=== PATIENT | male | born 1955 | race Two or more races ===

== ENCOUNTER 2020-03-25 13:51 | Inpatient (IN) | payer OTHER ==
[~2020-03-25] VITALS: Ht 175.3 cm; Wt 77.1 kg
[2020-03-25] MEDS ORDERED: SODIUM CHLORIDE 0.9% 500 ML IVB ONE (14:05)
[2020-03-25] MEDS ORDERED: ONDANSETRON HCL 4 MG/2 ML VIAL IV ONE (14:15)
[2020-03-25] MEDS ORDERED: MORPHINE SULFATE 4 MG/ML SYR/VIAL IV ONE (14:15)
[2020-03-25 14:23] LABS: Basophils # (auto) 0 10 ^3/uL (0-0.2); Basophils % (auto) 0.3 % (0.0-2.0); Eosinophils # (auto) 0 10 ^3/uL (0-0.8); Eosinophils % (auto) 0.1 % (0.0-7.0); Hematocrit 44.1 % (41.0-53.0); Hemoglobin 15.1 g/dL (13.5-17.5); Lymphocytes # (auto) 0.7 10 ^3/uL (0.4-5.4); Lymphocytes % (auto) 11.3 % (10.0-50.0); Mean Corpuscular Hgb Conc. 34.4 g/dL (32.0-36.0); Mean Corpuscular Volume 87.2 fL (80.0-100.0); Monocytes # (auto) 0.4 10 ^3/uL (0-1.3); Monocytes % (auto) 6.8 % (0.0-12.0); Neutrophils % (auto) 81.5 % (37.0-80.0); Nucleated Red Blood Cells % 0.2 %; Platelet Count (auto) 181 10^3/uL (140-450); Red Blood Cells 5.05 10^6/uL (4.5-5.90); Red Cell Distribution Width 12.6 % (11.8-14.3); White Blood Cell 6.1 10^3/uL (4.4-10.8)
[2020-03-25 14:38] LABS: INR 1.14 (0.9-1.15); Partial Thromboplastin Time 38.4 sec (23.64-32.05)
[2020-03-25 14:41] LABS: Albumin 3.2 g/dL (3.4-5.0); Amylase 57 U/L (25-115); Anion Gap 6 (5-15); Blood Urea Nitrogen 14 mg/dL (7-18); Carbon Dioxide 27 mmol/L (21-32); Chloride 100 mmol/L (98-107); Glucose 109 mg/dL (74-106); Lipase 123 U/L (73-393); Potassium 3.8 mmol/L (3.5-5.1); Sodium 133 mmol/L (136-145)
[2020-03-25 14:48] LABS: Alanine Aminotransferase 73 U/L (16-61); Alkaline Phosphatase 80 U/L (45-117); Aspartate Aminotransferase 58 U/L (15-37); BUN/Creatinine Ratio 12.6; Bilirubin, Total 0.9 mg/dL (0.2-1.0); GFR African American 86 mL/min; GFR Non-African American 71 mL/min; Total Protein 7.9 g/dL (6.4-8.2)
[2020-03-25] MEDS ORDERED: IOHEXOL 300 MG/ML 100ML BOTTLE IJ ONE (17:13)
[2020-03-25] MEDS ORDERED: LORazepam 0.5 MG TAB PO PRN (17:15)
[2020-03-25] MEDS ORDERED: ALUM & MAG HYDROX-SIMETH LIQ(MAALOX) 30 ML PO PRN (17:15)
[2020-03-25] MEDS ORDERED: ONDANSETRON HCL 4 MG/2 ML VIAL IV PRN (17:15)
[2020-03-25] MEDS ORDERED: DOCUSATE SOD 100 MG CAP PO PRN (17:15)
[2020-03-25] MEDS ORDERED: NITROGLYCERIN 0.4 MG SL TAB SL PRN (17:15)
[2020-03-25] MEDS ORDERED: ACETAMINOPHEN 500 MG TAB PO PRN (17:15)
[2020-03-25] MEDS ORDERED: MORPHINE SULF INJ 2 MG/ML SYRINGE 1ML IV PRN ×2 (17:15)
[2020-03-25] MEDS ORDERED: HYDROcodone-ACET 5/325MG TAB PO PRN (17:15)
[2020-03-25] MEDS: SOD CHL 0.45% 1,000 ML IV SCH (17:58)
[2020-03-25 18:01] VITALS: BP 112/72
[2020-03-25 18:57] LABS: Urine WBC None Seen /hpf (0 - 3)
[2020-03-25 19:17] LABS: Cholesterol 146 mg/dL (< 200); HDL Cholesterol 43 mg/dL (40-59); LDL Cholesterol 93 mg/dL (< 100); Triglycerides 98 mg/dL (< 150)
[2020-03-25 19:17] LABS: Urine Bacteria NONE SEEN /hpf (None Seen); Urine Blood Negative /uL (Negative); Urine Specific Gravity 1.006 (1.001-1.035)
[2020-03-25 19:20] LABS: Magnesium 2.2 mg/dL (1.6-2.6)
[2020-03-25 19:21] LABS: CRP High Sensitivity 12.9 mg/dL (< 0.3)
[2020-03-25 19:22] LABS: Amphetamine Screen, Urine NEGATIVE (NEGATIVE); Barbiturate Scree,Urine NEGATIVE (NEGATIVE); Benzodiazephine Screen, Urine NEGATIVE (NEGATIVE); Cannabinoid Screen, Urine NEGATIVE (NEGATIVE); Cocaine Screen, Urine NEGATIVE (NEGATIVE); Opiate Scree,Urine NEGATIVE (NEGATIVE); Phencyclidine Screen, Urine NEGATIVE (NEGATIVE)
[2020-03-25 19:24] LABS: Alcohol, Urine < 3.0 mg/dL (0-10)
[2020-03-25] MEDS ORDERED: ALBUTEROL SULF HFA 90MCG INH 200DOSE IN SCH (22:00)
--- NOTE | 2020-03-25 22:55 | NUR ---
Telemetry admit from [facility] admitted to Telemetry unit after SBAR received. Patient oriented to ANTONI GREER RN primary RN, unit, room, bed, and unit policies regarding patient care and visiting hours. Patient now on continuous telemetry monitoring, tele box # 21 and telemetry reading on arrival to unit is SR. Patient placed on bedside oxygen, weighed by bedscale and encouraged to call if they need something. All questions and concerns addressed, patient verbalized understanding.
[2020-03-25] MEDS ORDERED: FUROSEMIDE 20 MG/2 ML VIAL IV ONE (23:45)
[2020-03-26] MEDS: DOXYCYCLINE 100 MG TAB/CAP PO SCH ×3 (00:18→22:43)
--- NOTE | 2020-03-26 03:08 | NUR ---
CARE ENDORSED TO SUSANNE SOLITARIO
--- NOTE | 2020-03-26 03:30 | NUR ---
Received pt's report from battery inspector nurse, pt sleeping resting comfortably, call light within reach, will continue to monitor pt.
[2020-03-26 05:00] VITALS: BP 174/74
[2020-03-26] MEDS: FUROSEMIDE 20 MG/2 ML VIAL IV SCH ×2 (06:33→17:33)
--- NOTE | 2020-03-26 06:53 | NUR ---
Pt educated on the use, need, and frequency of the incentive spirometer, pt verbalized understanding, obtain returned demonstration up to 500. Pt also encourage to position himself on a prone position as tolerated.
[2020-03-26 07:13] LABS: Basophils # (auto) 0 10 ^3/uL (0-0.2); Basophils % (auto) 0.2 % (0.0-2.0); Eosinophils # (auto) 0 10 ^3/uL (0-0.8); Eosinophils % (auto) 0.2 % (0.0-7.0); Hematocrit 40.5 % (41.0-53.0); Hemoglobin 14.1 g/dL (13.5-17.5); Lymphocytes % (auto) 12.7 % (10.0-50.0); Mean Corpuscular Hgb Conc. 34.8 g/dL (32.0-36.0); Mean Corpuscular Volume 86.4 fL (80.0-100.0); Monocytes # (auto) 0.4 10 ^3/uL (0-1.3); Monocytes % (auto) 5.2 % (0.0-12.0); Neutrophils # (auto) 6.2 10 ^3/uL (1.6-8.6); Neutrophils % (auto) 81.7 % (37.0-80.0); Nucleated Red Blood Cells % 0.1 %; Platelet Count (auto) 171 10^3/uL (140-450); Red Blood Cells 4.69 10^6/uL (4.5-5.90); Red Cell Distribution Width 12.3 % (11.8-14.3); White Blood Cell 7.6 10^3/uL (4.4-10.8)
--- NOTE | 2020-03-26 07:25 | NUR ---
ASSESSED PT FOR THE NEED OF MDI TX, PT SAYS SHE DOES NOT TAKE BREATHING TX AT HOME, PT ON 2 L NC WITH SPO2 93%, HR 72, RR 18 WITH DIMINISHED BS NO SOB NOTED, NO DISTRESS NOTED. MDI DC. WILL CONTINUE TO MONITOR PT. Addendum: 03/26/20 at 1429 by DARWIN SEALS, RT RT MICHAEL
[2020-03-26 07:33] LABS: INR 1.15 (0.9-1.15); Partial Thromboplastin Time 38.8 sec (23.64-32.05)
[2020-03-26 07:46] LABS: Chloride 102 mmol/L (98-107); Potassium 3.9 mmol/L (3.5-5.1); Sodium 132 mmol/L (136-145)
[2020-03-26 08:00] VITALS: BP 124/74
[2020-03-26 08:02] LABS: Alanine Aminotransferase 66 U/L (16-61); Albumin 2.6 g/dL (3.4-5.0); Alkaline Phosphatase 71 U/L (45-117); Anion Gap 5 (5-15); Aspartate Aminotransferase 44 U/L (15-37); Bilirubin, Total 0.8 mg/dL (0.2-1.0); Blood Urea Nitrogen 13 mg/dL (7-18); Calcium 7.7 mg/dL (8.5-10.1); Carbon Dioxide 25 mmol/L (21-32); Creatine Kinase IFCC 86 U/L (39-308); GFR African American 167 mL/min; GFR Non-African American 138 mL/min; Glucose 110 mg/dL (74-106); Lactate Dehydrogenase 302 U/L (87-241); Magnesium 2.4 mg/dL (1.6-2.6); Phosphorus 3.2 mg/dL (2.5-4.90); Total Protein 6.9 g/dL (6.4-8.2)
[2020-03-26 10:00] VITALS: BP 124/74
[2020-03-26] MEDS ORDERED: ENOXAPARIN SOD 40 MG/0.4 ML SYRINGE SC SCH (10:00)
[2020-03-26] MEDS: ZINC SULFATE 220mg CAP or TAB PO SCH (10:29)
[2020-03-26] MEDS: SOD CHL 0.45% 1,000 ML IV SCH (10:29)
[2020-03-26] MEDS: ASCORBIC ACID 1,000 MG TAB PO SCH (10:30)
[2020-03-26] MEDS: CHOLECALCIFEROL (VITD3) 1,000UNIT=25mCg TAB PO SCH (10:30)
[2020-03-26] MEDS ORDERED: POLYETHYLENE GLYCOL 17 GM PWDR PO ONE (11:45)
[2020-03-26 12:00] VITALS: BP 123/75
[2020-03-26] MEDS ORDERED: ENOXAPARIN SOD 40 MG/0.4 ML SYRINGE SC ONE (12:30)
--- NOTE | 2020-03-26 13:48 | NUR ---
Dr. Guido/heather at bed side to see pt, doctor discussed the plan of care with pt.
--- NOTE | 2020-03-26 14:23 | NUR ---
Called and left a message to Dr. Audie lCark informing him that the CT angio can not be done today due to pt having contrast yesterday, CT angio can be done tomorrow, but doctor informed that if it needs to be done stat there has to be a documentation order.
[2020-03-26 17:00] VITALS: BP_SYST 119; BP_SYST 120; BP_DIAS 63; BP_DIAS 73
--- NOTE | 2020-03-26 20:00 | NUR ---
open note assumed care of pt. upon entering room pt awake, alert and oriented x4. pt on 2L nc no distress noted or expressed. pt denied any pain. pt updated on plan of care, no additional questions at this time. pt bed locked, low and 2x rails up. pt on respiratory iso for positive covid. pt call light in reach. pt encouraged to call as needed. this nurse to check in with pt q1hr and prn.
[2020-03-26 21:04] VITALS: BP 109/66
[2020-03-26] MEDS: ENOXAPARIN SOD 80 MG/0.8ML SYRINGE SC SCH (22:43)
[2020-03-27] MEDS: SOD CHL 0.45% 1,000 ML IV SCH ×2 (03:16→19:13)
[2020-03-27] MEDS: FUROSEMIDE 20 MG/2 ML VIAL IV SCH ×2 (06:00→18:35)
--- NOTE | 2020-03-27 07:55 | NUR ---
REGARDING CT ANGIO: CALLED RADIOLOGY REGARDING PATIENTS PENDING CT ANGIO WITH CONTRAST. STATED HAVE TO WAIT UNTIL 4PM DUE TO CONTRAST.
--- NOTE | 2020-03-27 08:30 | NUR ---
OPENING SHIFT NOTE: PATIENT RESTING IN BED NO S/S OF DISTRESS NOTED AT THIS TIME. PATIENT DENIES ANY PAIN AT THIS TIME. THIS RN OBSERVED PROPER RETURN DEMONSTRATION OF INCENTIVE SPIROMETER. 750ML. INSTRUCTED PATIENT ON IMPORTANCE OF AMBULATING AND SELF PRONING, VERBALIZED UNDERSTANDING. ASSISTED PATIENT TO SIT IN CHAIR TO EAT BREAKFAST. TOLERATED WELL. NO S/S OF SOB NOTED AT THIS TIME. WILL CONTINUE CARE.
[2020-03-27 09:00] VITALS: BP 101/66
--- NOTE | 2020-03-27 09:39 | NUR ---
REGARDING TOCILIZUMAB: PER PHARMACIST, ONLY Stuart BRUMFIELD AND Stuart ALCAZAR CAN SIGN OFF ON THIS MEDICATION. CALLED Stuart ALCAZAR TO INFORM STATED HE WILL CALL Stuart BARRERA.
[2020-03-27] MEDS: methylPREDNISolone SOD SUCC 40 MG/ML VL IV SCH ×3 (10:00→22:00)
[2020-03-27] MEDS ORDERED: TOCILIZUMAB 400 MG IV SCH (10:00)
[2020-03-27] MEDS: ZINC SULFATE 220mg CAP or TAB PO SCH (10:26)
[2020-03-27] MEDS: DOXYCYCLINE 100 MG TAB/CAP PO SCH ×2 (10:27→23:30)
[2020-03-27] MEDS: CHOLECALCIFEROL (VITD3) 1,000UNIT=25mCg TAB PO SCH (10:27)
[2020-03-27] MEDS: ASCORBIC ACID 1,000 MG TAB PO SCH (10:27)
[2020-03-27] MEDS: ENOXAPARIN SOD 80 MG/0.8ML SYRINGE SC SCH ×2 (10:28→23:30)
--- NOTE | 2020-03-27 11:00 | NUR ---
REGARDING TOCILIZUMAB: PER PHARMACIST MED CAN NOT BE MIXED UNTIL 1900 DUE TO PHARMACY HOURS. INFORMED Stuart BARRERA. STATED OK.
[2020-03-27] MEDS ORDERED: methylPREDNISolone SOD SUCC 40 MG/ML VL IV ONE ×2 (11:30→18:00)
[2020-03-27] MEDS ORDERED: diphenhdrAMINE HCL 50 MG/1 ML VL IV ONE ×2 (11:30→18:00)
[2020-03-27] MEDS ORDERED: ACETAMINOPHEN 650 mg PER 20 mL UD PO ONE ×2 (11:30→18:00)
[2020-03-27] MEDS ORDERED: TOCILIZUMAB 400 MG in SODIUM CHL 0.9% 80 ML IV SCH (12:00)
[2020-03-27 12:42] VITALS: BP 103/71
--- NOTE | 2020-03-27 15:02 | NUR ---
IV INITIATED TO LFA 18 GAUGE WITH 1 ATTEMPT FOLLOWING HOSPITAL POLICY.
[2020-03-27] MEDS ORDERED: IOHEXOL 350 MG/ML 100ML IJ ONE (17:20)
--- NOTE | 2020-03-27 17:29 | NUR ---
PATIENT WHEELED DOWN TO RADIOLOGY FOR CT. NO S/S OF DISTRESS. TRANSPORTED BY RADIOLOGY STAFF ON TELE MONITORING.
[2020-03-27 17:34] VITALS: BP 107/64
[2020-03-27 18:30] LABS: Alcohol, Urine < 3.0 mg/dL (0-10); Amphetamine Screen, Urine NEGATIVE (NEGATIVE); Barbiturate Scree,Urine NEGATIVE (NEGATIVE); Benzodiazephine Screen, Urine NEGATIVE (NEGATIVE); Cannabinoid Screen, Urine NEGATIVE (NEGATIVE); Cocaine Screen, Urine NEGATIVE (NEGATIVE); Opiate Scree,Urine NEGATIVE (NEGATIVE); Phencyclidine Screen, Urine NEGATIVE (NEGATIVE)
--- NOTE | 2020-03-27 19:00 | NUR ---
CALLED PHARMACY REGARDING ACTREMA. STATED THEY HAVE ALREADY SENT IT UP WITH PHARMACY.
--- NOTE | 2020-03-27 19:21 | NUR ---
Opening Shift Note Assumed care of patient, awake, alert and oriented x4, on 2L of oxygen via NC with even and unlabored respirations, no S/S of distress/SOB or pain. Patient able to ambulate independently, bed in lowest locked position, side rails up x2, and call light within reach. Instructed on POC and to call for assist PRN, will continue to monitor for changes Q1hr and PRN.
[2020-03-27] MEDS: TOCILIZUMAB 400 MG in SODIUM CHL 0.9% 80 ML IV SCH (19:36)
[2020-03-27 22:00] VITALS: BP 108/70
[2020-03-28 05:00] VITALS: BP 110/77
[2020-03-28] MEDS: FUROSEMIDE 20 MG/2 ML VIAL IV SCH ×2 (05:46→18:06)
[2020-03-28] MEDS: TOCILIZUMAB 400 MG in SODIUM CHL 0.9% 80 ML IV SCH (06:45)
[2020-03-28 06:58] LABS: Potassium 4.1 mmol/L (3.5-5.1)
[2020-03-28 07:16] LABS: BUN/Creatinine Ratio 31.7; CRP High Sensitivity 11.5 mg/dL (< 0.3); Calcium 8.2 mg/dL (8.5-10.1)
--- NOTE | 2020-03-28 07:30 | NUR ---
Opening Shift Note Assumed care of patient, awake and alert. No S/S of distress/SOB or pain. Instructed on POC and to call for assist PRN, will continue to monitor for changes Q1hr and PRN. Fall precautions in place per safety protocol.
[2020-03-28 08:00] VITALS: BP 108/71
[2020-03-28] MEDS: CHOLECALCIFEROL (VITD3) 1,000UNIT=25mCg TAB PO SCH (10:54)
[2020-03-28] MEDS: ZINC SULFATE 220mg CAP or TAB PO SCH (10:54)
[2020-03-28] MEDS: ENOXAPARIN SOD 80 MG/0.8ML SYRINGE SC SCH ×2 (10:54→22:10)
[2020-03-28] MEDS: ASCORBIC ACID 1,000 MG TAB PO SCH (10:54)
[2020-03-28] MEDS: methylPREDNISolone SOD SUCC 40 MG/ML VL IV SCH ×2 (10:54→22:09)
[2020-03-28] MEDS: DOXYCYCLINE 100 MG TAB/CAP PO SCH ×2 (11:20→22:10)
[2020-03-28] MEDS: SOD CHL 0.45% 1,000 ML IV SCH (11:44)
[2020-03-28 13:00] VITALS: BP 109/70
[2020-03-28 22:00] VITALS: BP 112/72
[2020-03-29] MEDS: SOD CHL 0.45% 1,000 ML IV SCH (04:24)
[2020-03-29 05:00] VITALS: BP 95/65
[2020-03-29] MEDS: FUROSEMIDE 20 MG/2 ML VIAL IV SCH (06:01)
[2020-03-29 07:32] LABS: Basophils # (auto) 0 10 ^3/uL (0-0.2); Basophils % (auto) 0.1 % (0.0-2.0); Eosinophils # (auto) 0 10 ^3/uL (0-0.8); Hematocrit 39.5 % (41.0-53.0); Hemoglobin 13.6 g/dL (13.5-17.5); Lymphocytes # (auto) 0.8 10 ^3/uL (0.4-5.4); Lymphocytes % (auto) 6.8 % (10.0-50.0); Mean Corpuscular Hemoglobin 29.6 pg (28.0-32.0); Mean Corpuscular Hgb Conc. 34.5 g/dL (32.0-36.0); Mean Corpuscular Volume 85.8 fL (80.0-100.0); Monocytes # (auto) 0.3 10 ^3/uL (0-1.3); Monocytes % (auto) 2.6 % (0.0-12.0); Neutrophils # (auto) 10.4 10 ^3/uL (1.6-8.6); Neutrophils % (auto) 90.5 % (37.0-80.0); Nucleated Red Blood Cells % 0.3 %; Platelet Count (auto) 281 10^3/uL (140-450); Red Blood Cells 4.61 10^6/uL (4.5-5.90); Red Cell Distribution Width 12.4 % (11.8-14.3); White Blood Cell 11.4 10^3/uL (4.4-10.8)
[2020-03-29 07:36] LABS: Calcium 8.4 mg/dL (8.5-10.1); Potassium 4.2 mmol/L (3.5-5.1)
[2020-03-29 07:45] LABS: BUN/Creatinine Ratio 30.6; CRP High Sensitivity 5.94 mg/dL (< 0.3)
[2020-03-29 08:00] VITALS: BP 111/74
--- NOTE | 2020-03-29 08:30 | NUR ---
EKG EKG obtained, QTC 431. Will cont to administer Plaquenil.
--- NOTE | 2020-03-29 09:24 | NUR ---
Assessment Patient is a 65-year-old male who is alert and oriented. Unable to speak to patient. Assessment was completed with patient homero Whatley . Per Phylicia prior to admission patient lived home with her and functioned independently. Per Phylicia patient does not have any medical equipment now. Per Phylicia patient will return home to his prior living arrangements post discharge and she will transport him home. Sonu Whatley patient does not have a PCP. Advised Phylicia there is a social service consult for safety evaluation for status of positive COVID. Informed Phylicia [facility] Informed Phylicia she has the right to participate in all discharge planning. Phylicia verbalized understanding and agreed to discharge plan. Faxed clinical information to [facility]. Sonu Tse with [facility] [phone] patient has been accepted and service to start within 48hrs upon d/c day. Informed patient homero Whatley. Addendum: 03/29/20 at 0926 by MARITZA QIU Amended: Links added.
[2020-03-29] MEDS: ZINC SULFATE 220mg CAP or TAB PO SCH (10:48)
[2020-03-29] MEDS: methylPREDNISolone SOD SUCC 40 MG/ML VL IV SCH (10:48)
[2020-03-29] MEDS: DOXYCYCLINE 100 MG TAB/CAP PO SCH (10:49)
[2020-03-29] MEDS: ENOXAPARIN SOD 80 MG/0.8ML SYRINGE SC SCH (10:49)
[2020-03-29] MEDS: ASCORBIC ACID 1,000 MG TAB PO SCH (10:49)
[2020-03-29] MEDS: CHOLECALCIFEROL (VITD3) 1,000UNIT=25mCg TAB PO SCH (10:49)
[2020-03-29 12:36] VITALS: BP 100/65
--- NOTE | 2020-03-29 13:08 | NUR ---
MD Marleny Elliott at bedside aware of patient status. Per MD Elliott, if Dr. Guido clears patient for D/C then patient can go home today after home o2 has been arranged by hospice social worker. Awaiting for MD Guido at this time. Will carry out new orders and cont to monitor patient.
[2020-03-29 13:30] VITALS: BP 100/65
--- NOTE | 2020-03-29 14:33 | NUR ---
1433 03/29/20 Faxed order for continuous home O2 2L/Min to [facility] at [phone] for case briefer Joycelyn Dasilva, requesting authorization.
--- NOTE | 2020-03-29 14:44 | NUR ---
Est energy needs 5236-8756 kcal (25-27 kcal/kg BW 77.1kg) Est protein needs 62-77g (0.8-1g/kg BW 77.1kg) Will reassess prn Addendum: 03/29/20 at [address] Amended: Links added.
[2020-03-29] MEDS ORDERED: IPRIH IN (15:15)
[2020-03-29] MEDS ORDERED: DOCU100C8 PO (15:15)
[2020-03-29] MEDS ORDERED: DOX100T PO (15:15)
[2020-03-29] MEDS ORDERED: HYDR200T36 PO (15:15)
[2020-03-29] MEDS ORDERED: PRED20TA2 PO (15:15)
[2020-03-29] MEDS ORDERED: ALBUAER3 IN (15:15)
--- NOTE | 2020-03-29 15:43 | NUR ---
I spoke with [facility] [employer]acht [employer] Erika and asked if they have a complex case management program. Per Erika they do have a special team that follows their COVID-19 + patients. I faxed home health order and COVID-19 test result to [facility].
--- NOTE | 2020-03-29 16:00 | NUR ---
Home O2 Delivered at bedside. Patient educated on use. Patient returned demonstration.
--- NOTE | 2020-03-29 16:36 | NUR ---
Spoke to Erika from [facility]'s Covid-19 monitoring program. Per Erika, services will be provided to patient after discharge. Address, phone number, and patient agreement and acceptance obtained and verified.
--- NOTE | 2020-03-29 16:43 | NUR ---
D/C Planning Per consult for home health safety evaluation for COVID and home O2. Home health order was completed on Saturday and [facility] has accepted. Patient will be refer to [facility]'s COVID monitoring program. Faxed clinical information to [facility]. Sonu Tse oxygen will be deliver to front lobby between 15:00-17:00.
[2020-03-29 16:44] VITALS: BP 115/72
--- NOTE | 2020-03-29 19:06 | NUR ---
Temporary Receptionist MD Guido at bedside, aware of patient status. Per MD Guido, patient is cleared for discharge. Prescription for Eliquis received. Will attempt to obtain an eliquis starter pack for patient. Will leave message for social worker aide to attempt obtaining starter pack in the AM. Advised patient's daughter, Phylicia to call in the AM or wait for call from our social worker aide.
[2020-03-29 19:36] VITALS: BP 115/72
--- NOTE | 2020-03-29 19:56 | NUR ---
Endorsed care to night RN Laurie. Patient is all set and ready to go just waiting for ride at this time. Discharge paperwork handed to Laurie to review with patient.
--- NOTE | 2020-03-29 20:26 | NUR ---
Patient discharged from the unit. Reviewed medication and discharge instructions with the patient. Called and discussed discharge instructions with patient's daughter Phylicia. Patient and daughter verbalized understanding. IV DC'd with sterile technique, catheter fully intact. Pressure dressing applied to site. Patient tolerated procedure well. Patient telemetry box removed and returned to telemetry technicians. Patient left unit with new home O2 tank, at 2L via NC. Patient escorted off the unit in a wheelchair, by Kayla SKINNER, security, and EVS.
== END 2020-03-29 20:20 | disposition home health service (06) | DRG 177 ==
LOC: ER 13:51 → TELE 13:52 → TELE-EAST 23:41
PROVIDERS: ADMIT Hospitalist; ATTEND Hospitalist
DX: U07.1 COVID-19 (principal); J12.89 Other viral pneumonia; J96.01 Acute respiratory failure with hypoxia; E44.0 Moderate protein-calorie malnutrition; E87.1 Hypo-osmolality and hyponatremia; J98.11 Atelectasis; D72.829 Elevated white blood cell count, unspecified; R73.9 Hyperglycemia, unspecified; K40.20 Bilateral inguinal hernia, without obstruction or gangrene, not specified as recurrent; K76.0 Fatty (change of) liver, not elsewhere classified; K59.00 Constipation, unspecified
CPT/HCPCS: 36415; 36600; 70450; 71045; 71260; 71275; 74176; 80048; 80053; 80061; 80307; 81001; 82150; 82550; 82728; 82805; 83036; 83605; 83615; 83690; 83735; 83880; 84100; 84443; 84484; 85025; 85045; 85379; 85610; 85652; 85730; 86141; 87040; 87070; 87086; 87804; 87880; 93005; 93970; G0378

== ENCOUNTER 2020-08-24 16:44 | Emergency (ER) | payer OTHER ==
[~2020-08-24] VITALS: Ht 175.3 cm; Wt 79.4 kg
[~2020-08-24 16:44] MED LIST: ALBUAER3 IN; DOCU100C8 PO; DOX100T PO; HYDR200T36 PO; IPRIH IN; PRED20TA2 PO
[2020-08-24] MEDS ORDERED: ONDANSETRON HCL 4 MG/2 ML VIAL IV ONE (19:30)
[2020-08-24] MEDS ORDERED: MORPHINE SULFATE 10 MG/ML INJ 1ML SDV IV ONE (19:30)
[2020-08-24] MEDS ORDERED: MORPHINE SULF INJ 2 MG/ML SYRINGE 1ML IV ONE (19:30)
[2020-08-24] MEDS ORDERED: SODIUM CHLORIDE 0.9% 1,000 ML IV ONE (19:30)
[2020-08-24] MEDS ORDERED: TETANUS-DIPTH-ACEL PERTUSSIS 0.5ML SYR Tdap IM ONE (22:15)
[2020-08-24] MEDS ORDERED: NEOMYCIN-BACITRACIN-POLYM UNITDOSE PKG TOP OINT TOP ONE (22:15)
[2020-08-24] MEDS ORDERED: BACITRACIN TOP OINT 1 UD PKG TOP ONE (22:15)
[2020-08-24] MEDS ORDERED: LIDOCAINE 1% (LOCAL ANESTH.) PF 5ml SDV ID ONE (22:15)
[2020-08-24] MEDS ORDERED: ceFAZolin 1GM/50ML 100 ML IV ONE (22:15)
[2020-08-24] MEDS ORDERED: BUPIVACAINE 0.25% INJ 50ML VIAL ID ONE (22:15)
[2020-08-24] MEDS ORDERED: LIDOCAINE 1% HCL (LOCAL ANESTH.) INJ 20ML MDV IJ ONE (22:45)
[2020-08-25 03:00] VITALS: BP 127/84
[2020-08-25] MEDS ORDERED: HYDROcodone-ACET 7.5/325MG TAB PO ONE (05:15)
== END 2020-08-25 05:45 | disposition home or self-care (01) ==
LOC: ER 16:44 → EDBD 16:44 → ER 08-25 05:45
DX: S09.8XXA Other specified injuries of head, initial encounter (principal); S13.9XXA Sprain of joints and ligaments of unspecified parts of neck, initial encounter; S82.201A Unspecified fracture of shaft of right tibia, initial encounter for closed fracture; S22.42XA Multiple fractures of ribs, left side, initial encounter for closed fracture; S61.319A Laceration without foreign body of unspecified finger with damage to nail, initial encounter; W19.XXXA Unspecified fall, initial encounter; Y93.89 Activity, other specified; Y92.89 Other specified places as the place of occurrence of the external cause; Y99.8 Other external cause status
CPT/HCPCS: 12042; 70450; 71045; 71250; 72125; 72131; 73030; 73130; 73590; 74176; 90471; 90715; 96361; 96365; 96366; 96375; 99285; J0690; J2001; J2270; J2405; J7030